=== PATIENT | male | born 1955 | race Caucasian/White ===

== ENCOUNTER 2016-06-07 09:14 | Day surgery (SDC) | payer BC ==
[~2016-06-07 09:14] MED LIST: ADVAIR250 INH; ANDRODERM1 EACH TOP; BIST PO; LEVOTHYROXIN88 MCG PO; SYN88 PO; TESTOST CYP100 MG/ML; VALTREX5 PO; [UNRECOGNIZED DRUG - OTHER] IV
[2016-06-07 10:20] LABS: HEMOGLOBIN 8.3 g/dL (13.6-17.8); NUCLEATED RED BLOOD CELLS 1.6 /100WBC (0-0); RED CELL COUNT 2.33 10/6/uL (4.7-6.1); WHITE BLOOD CELLS 5.3 10/3/uL (4.5-10.5)
[2016-06-07 10:21] LABS: BUN (BLOOD UREA NITROGEN) 16 MG/DL (6-23); CALCIUM, SERUM 8.8 MG/DL (8.5-10.4); CHLORIDE, SERUM 107 MMOL/L (96-112); CO2 (CARBON DIOXIDE) 21 MMOL/L (24-34); CREATININE 1.13 MG/DL (0.70-1.30); GFR AFRICAN AMERICAN 80 ML/MIN (>=60); GFR NON AFRICAN AMERICAN 69 ML/MIN (>=60); GLUCOSE, SERUM 92 MG/DL (60-99); POTASSIUM, SERUM 3.8 MMOL/L (3.5-5.3); SODIUM, SERUM 139 MMOL/L (135-148)
[2016-06-07 10:22] LABS: MEAN CORPUS HGB CONC 34.6 g/dL (32.0-36.0); MEAN CORPUSCULAR HEMOGLOB 35.6 pg (26.0-34.0)
[2016-06-07 10:23] LABS: MANUAL DIFF YES %; PLATELET COUNT 3 10/3/uL (150-400); RETICULOCYTE COUNT 3.4 % (0.5-2.5); RETICULOCYTE COUNT ABSOLUTE 78.3 10/3/uL (20.2-119.8)
[2016-06-07 10:32] LABS: BAND NEUTROPHILS 1 %; EOSINOPHILS 4 %; EOSINOPHILS ABSOLUTE (CALC) 0.21 10/3/uL (0.0-0.53); LYMPHOCYTES 80 %; LYMPHOCYTES ABSOLUTE (CALC) 4.24 10/3/uL (0.67-4.30); NEUTROPHILS ABSOLUTE (CALC) 0.85 10/3/uL (2.02-8.40); SEGMENTED NEUTROPHIL (0) 15 %; TOTAL NUCLEATED CELLS 100
[2016-06-07 10:33] LABS: ANISOCYTOSIS 4+ (>50/OIF) (0-5/OIF); MACROCYTES 1+ (5-10/OIF) (0-5/OIF)
[2016-06-07 10:34] LABS: TEARDROP SHAPED RBCS FEW (3-10/OIF)
[2016-09-22] MEDS ORDERED: LEVOTHYROXIN88 MCG PO (10:41)
[2016-09-22] MEDS ORDERED: ADVAIR250 INH (10:41)
[2016-09-22] MEDS ORDERED: VALTREX5 PO (10:42)
[2016-09-22] MEDS ORDERED: DEX4 PO ×2 (10:46→10:47)
[2016-09-22] MEDS ORDERED: RITUXAN PO (10:56)
[2016-09-22] MEDS ORDERED: TESTOST CYP100 MG/ML IM (10:59)
== END 2016-06-07 23:59 | disposition home or self-care (01) ==
LOC: SDC 09:14
PROVIDERS: Anesthesiology; Pathology Cytopathology
PROC: 079T3ZX Drainage of Bone Marrow, Percutaneous Approach, Diagnostic (ICD-10-PCS; principal; 2016-06-07 11:00)
PROC: 07DR3ZX Extraction of Iliac Bone Marrow, Percutaneous Approach, Diagnostic (ICD-10-PCS; 2016-06-07 11:00)
DX: D69.6 Thrombocytopenia, unspecified (principal); D64.9 Anemia, unspecified; J45.909 Unspecified asthma, uncomplicated; D70.9 Neutropenia, unspecified; E03.9 Hypothyroidism, unspecified; Z94.84 Stem cells transplant status; Z88.8 Allergy status to other drugs, medicaments and biological substances; Z98.890 Other specified postprocedural states
CPT/HCPCS: 80048; 85025; 85045; 88305; 88311; 88313; 88341; 88342